=== PATIENT | female | born 1955 | race African-American/Black ===

== ENCOUNTER 2018-12-23 16:59 | Inpatient (IN) | payer MEDICAID ==
[~2018-12-23] VITALS: Ht 157.5 cm; Wt 72.8 kg
[2018-12-23] MEDS: IPRATROPIUM/ALBUTEROL 0.5-3(2.5)MG/3ML NEB INH SCH ×2 (01:25→09:39)
[~2018-12-23 16:59] MED LIST: LORA10TA7 PO; MONT10TA24 PO; OMEP40CA34 PO
[2018-12-23] MEDS ORDERED: MORPHINE SULFATE 4 MG/ML CPJ (NOT FOR IM USE) IV STA (17:14)
[2018-12-23] MEDS ORDERED: ONDANSETRON HCL 4MG/2ML INJ IV STA (17:14)
[2018-12-23] MEDS ORDERED: SODIUM CHLORIDE 0.9% 1,000 ML IV ONE (17:14)
[2018-12-23 17:53] LABS: BASOPHILS % 0.6 % (0.0-2.0); EOSINOPHILS % 0.1 % (0.0-5.0); HEMATOCRIT. 33.5 % (36.0-48.0); HEMOGLOBIN. 11.2 g/dL (12.0-16.0); MEAN CORPUSCULAR HEMOGLOBIN 31.9 pg (28.0-32.0); MEAN CORPUSCULAR VOLUME 95.3 fL (81.0-99.0); MEAN PLATELET VOLUME 8.9 fl (7.4-10.4); MONOCYTES % 11.1 % (2.0-8.0); NEUTROPHILS % 46.2 % (40.0-76.0); PLATELET 284 x1000/uL (130-400); RED BLOOD CELL COUNT 3.52 mill/uL (4.2-5.4); RED CELL DISTRIBUTION WIDTH 13.5 % (11.6-14.6)
[2018-12-23 17:59] LABS: CHLORIDE 113 mEq/L (98-107)
[2018-12-23 18:03] LABS: D-DIMER 0.38 mg/L FEU (<0.50); INR 1.1; PARTIAL THROMBOPLASTIN TIME 27.7 sec (23.4-31.0); PROTHROMBIN TIME 11.5 sec (9.6-11.0)
[2018-12-23] MEDS ORDERED: NITROGLYCERIN 0.4MG TABLET SL SL PRN (19:15)
[2018-12-23] MEDS ORDERED: ASPIRIN 81MG TABLET PO ONE (19:15)
[2018-12-23] MEDS ORDERED: LEVOFLOXACIN 750MG PREMIX 150 ML IV ONE (19:30)
[2018-12-23] MEDS ORDERED: SODIUM CHLORIDE 0.9% 1000ML BAG (SEPSIS BOLUS) IV ONE (19:30)
[2018-12-23 21:44] LABS: CLARITY URINE TURBID (CLEAR); COLOR URINE YELLOW (YELLOW); KETONES URINE NEGATIVE (NEGATIVE); LEUKOCYTE ESTERASE URINE 3+ (NEGATIVE); NITRITE URINE POSITIVE (NEGATIVE); OCCULT BLOOD URINE 1+ (NEGATIVE); PH URINE 5.5 (4.5-8.0); PROTEIN URINE NEGATIVE (NEGATIVE); SPECIFIC GRAVITY URINE 1.011 (1.005-1.030); UROBILINOGEN URINE 0.2 E.U./dL (0.2-1.0)
[2018-12-23 23:25] VITALS: BP 149/79
[2018-12-23] MEDS ORDERED: GUAIFENESIN 200MG/10ML SUGAR FREE UDC PO PRN (23:30)
[2018-12-23] MEDS ORDERED: CLONIDINE 0.1MG TABLET PO PRN (23:30)
[2018-12-23] MEDS ORDERED: MAGNESIUM/ALUMINUM HYDROXIDE/SIMETHICONE 30ML UDC PO PRN (23:30)
[2018-12-23] MEDS ORDERED: DOCUSATE SODIUM 100MG CAPSULE PO PRN (23:30)
[2018-12-24] MEDS ORDERED: ONDANSETRON HCL 4MG/2ML INJ IV PRN
[2018-12-24] MEDS: CEFTRIAXONE 1 G PREMIX 50 ML IV SCH ×2 (03:13→20:58)
[2018-12-24 04:00] VITALS: BP 130/64
[2018-12-24 07:04] LABS: HEMATOCRIT. 31.5 % (36.0-48.0); HEMOGLOBIN. 10.5 g/dL (12.0-16.0); MEAN CORPUSCULAR VOLUME 96.1 fL (81.0-99.0); MEAN PLATELET VOLUME 9.3 fl (7.4-10.4); PLATELET 237 x1000/uL (130-400); RED BLOOD CELL COUNT 3.28 mill/uL (4.2-5.4); RED CELL DISTRIBUTION WIDTH 13.7 % (11.6-14.6)
[2018-12-24 08:00] VITALS: BP 128/69
[2018-12-24] MEDS: ENOXAPARIN 40MG/0.4ML SYR SUBCUT SCH (08:03)
[2018-12-24 09:05] LABS: METHADONE URINE SCREEN NEGATIVE (NEGATIVE); OPIATES URINE SCREEN PRESUMTIVE POSITIVE (NEGATIVE)
[2018-12-24 09:06] LABS: *AMPHETAMINES SCREEN URINE NEGATIVE (NEGATIVE); *BARBITURATES SCREEN URINE NEGATIVE (NEGATIVE); *BENZODIAZEPINES SCREEN URINE NEGATIVE (NEGATIVE); *COCAINE SCREEN URINE PRESUMTIVE POSITIVE (NEGATIVE); CANNABINOID URINE SCREEN NEGATIVE (NEGATIVE); PHENCYCLIDINE URINE SCREEN NEGATIVE (NEGATIVE)
[2018-12-24 09:30] LABS: CHLORIDE 114 mEq/L (98-107)
[2018-12-24 09:37] LABS: LDL CHOLESTEROL 60 mg/dL (5-100)
[2018-12-24 09:39] LABS: CREATINE KINASE 70 IU/L (26-192); HDL CHOLESTEROL 62 mg/dL (40-59)
[2018-12-24 09:41] LABS: CREATINE KINASE MB FRACTION 2.1 ng/mL (0.5-3.6)
[2018-12-24 12:00] VITALS: BP 112/56
[2018-12-24 16:00] VITALS: BP 128/66
[2018-12-24 17:04] LABS: PLATELET ESTIMATE NORMAL
[2018-12-24] MEDS ORDERED: IPRATROPIUM/ALBUTEROL 0.5-3(2.5)MG/3ML NEB HHN PRN (17:15)
[2018-12-24 17:36] LABS: CREATINE KINASE 49 IU/L (26-192)
[2018-12-24 17:38] LABS: CREATINE KINASE MB FRACTION 1.4 ng/mL (0.5-3.6)
[2018-12-24 20:10] VITALS: BP 123/63
[2018-12-24] MEDS: METRONIDAZOLE 500MG TABLET PO SCH (21:11)
[2018-12-25 00:17] VITALS: BP 140/87
[2018-12-25] MEDS: IPRATROPIUM/ALBUTEROL 0.5-3(2.5)MG/3ML NEB INH SCH ×4 (02:13→21:14)
[2018-12-25 04:00] VITALS: BP 114/54
[2018-12-25] MEDS: METRONIDAZOLE 500MG TABLET PO SCH ×3 (06:03→21:40)
[2018-12-25 08:00] VITALS: BP 119/67
[2018-12-25] MEDS: BUDESONIDE 0.5MG/2ML NEB HHN SCH ×2 (08:47→21:13)
[2018-12-25] MEDS: ENOXAPARIN 40MG/0.4ML SYR SUBCUT SCH (09:35)
[2018-12-25 12:00] VITALS: BP 125/47
[2018-12-25 16:00] VITALS: BP 166/55
[2018-12-25 20:00] VITALS: BP 121/71
[2018-12-25] MEDS: CEFTRIAXONE 1 G PREMIX 50 ML IV SCH (21:40)
[2018-12-26] VITALS: BP 135/65
[2018-12-26] MEDS: IPRATROPIUM/ALBUTEROL 0.5-3(2.5)MG/3ML NEB INH SCH ×4 (02:38→20:00)
[2018-12-26 04:00] VITALS: BP 134/66
[2018-12-26] MEDS: METRONIDAZOLE 500MG TABLET PO SCH ×3 (06:04→22:07)
[2018-12-26 06:46] LABS: HEMATOCRIT. 29.2 % (36.0-48.0); HEMOGLOBIN. 9.9 g/dL (12.0-16.0); MEAN CORPUSCULAR VOLUME 94.2 fL (81.0-99.0); MEAN PLATELET VOLUME 9.1 fl (7.4-10.4); PLATELET 243 x1000/uL (130-400); RED CELL DISTRIBUTION WIDTH 13.6 % (11.6-14.6)
[2018-12-26 07:02] LABS: CHLORIDE 110 mEq/L (98-107)
[2018-12-26] MEDS: ENOXAPARIN 40MG/0.4ML SYR SUBCUT SCH (08:06)
[2018-12-26 08:22] VITALS: BP 131/64
[2018-12-26] MEDS ORDERED: POTASSIUM CHLORIDE 20MEQ TABLET SR PO NR (11:00)
[2018-12-26 11:48] VITALS: BP 116/61
[2018-12-26 14:09] LABS: PLATELET ESTIMATE NORMAL
[2018-12-26] MEDS: BUDESONIDE 0.5MG/2ML NEB HHN SCH ×2 (15:12→20:00)
[2018-12-26 16:04] VITALS: BP 122/62
[2018-12-26 20:00] VITALS: BP 124/64
[2018-12-26] MEDS: CEFTRIAXONE 1 G PREMIX 50 ML IV SCH (20:12)
[2018-12-27] VITALS: BP 132/65
[2018-12-27] MEDS: IPRATROPIUM/ALBUTEROL 0.5-3(2.5)MG/3ML NEB INH SCH ×3 (01:39→12:57)
[2018-12-27 04:00] VITALS: BP 128/68
[2018-12-27] MEDS: METRONIDAZOLE 500MG TABLET PO SCH ×2 (05:34→13:56)
[2018-12-27] MEDS: ENOXAPARIN 40MG/0.4ML SYR SUBCUT SCH (08:04)
[2018-12-27 08:31] VITALS: BP 120/63
[2018-12-27] MEDS: BUDESONIDE 0.5MG/2ML NEB HHN SCH (09:26)
[2018-12-27 12:22] VITALS: BP 116/56
[2018-12-27 13:23] VITALS: BP 116/56
[2018-12-27 15:49] LABS: CHLORIDE 107 mEq/L (98-107)
[2018-12-27 15:55] VITALS: BP 125/64
== END 2018-12-27 16:50 | disposition home or self-care (01) | DRG 720 ==
LOC: ER 16:59 → 6WST 21:26 → EDBEDREQ 21:28 → EDBEDREQTM 21:28 → ENRESERV 22:47
PROVIDERS: ADMIT Internal Medicine; ATTEND Internal Medicine
DX: A41.9 Sepsis, unspecified organism (principal); J96.00 Acute respiratory failure, unspecified whether with hypoxia or hypercapnia; T40.5X1A Poisoning by cocaine, accidental (unintentional), initial encounter; J68.0 Bronchitis and pneumonitis due to chemicals, gases, fumes and vapors; J43.2 Centrilobular emphysema; E87.6 Hypokalemia; I10 Essential (primary) hypertension; N39.0 Urinary tract infection, site not specified; K21.9 Gastro-esophageal reflux disease without esophagitis; D25.9 Leiomyoma of uterus, unspecified; K52.9 Noninfective gastroenteritis and colitis, unspecified; B96.20 Unspecified Escherichia coli [E. coli] as the cause of diseases classified elsewhere; M19.90 Unspecified osteoarthritis, unspecified site; F11.10 Opioid abuse, uncomplicated; J98.4 Other disorders of lung; Z80.3 Family history of malignant neoplasm of breast; Z87.891 Personal history of nicotine dependence; Z79.899 Other long term (current) drug therapy; Y92.89 Other specified places as the place of occurrence of the external cause; Z71.51 Drug abuse counseling and surveillance of drug abuser
CPT/HCPCS: 36415; 71045; 74176; 76641; 80048; 80061; 80305; 82550; 82553; 83605; 83880; 84443; 84484; 85379; 87077; 87186; 93005; 93970; 94640; 96374; 96375; 97162; 99285; J0696; J1650; J1956; J2270; J2405; J7030; J7040; J7050; J7620; J7626